=== PATIENT | female | born 1990 | race Asian ===

== ENCOUNTER 2016-06-26 16:48 | Outpatient (CLI) | payer MEDICAID, OTHER ==
[~2016-06-26] VITALS: Ht 170.2 cm; Wt 70.0 kg
[2016-06-26 17:17] VITALS: Ht 170.2 cm; Wt 70.0 kg
[2016-06-26 17:18] VITALS: BP 117/64; PULSE 83; RESP 20
[2016-06-26] MEDS ORDERED: PREN1TAB79 PO (17:21)
[2016-06-26 18:06] LABS: ADD UMIC NO; URINE BILIRUBIN (Dip) NEGATIVE (NEGATIVE); URINE BLOOD (Dip) NEGATIVE (NEGATIVE); URINE COLOR LT. YELLOW (YELLOW); URINE KETONES (Dip) TRACE (NEGATIVE); URINE LEUKOCYTE ESTERASE (Dip) NEGATIVE (NEGATIVE); URINE NITRITE (Dip) NEGATIVE (NEGATIVE); URINE TOTAL PROTEIN (Dip) NEGATIVE (NEGATIVE); URINE UROBILINOGEN (Dip) 0.2 E.U./dL (0.1-1.0)
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
== END 2016-06-26 19:30 | disposition home or self-care (01) ==
LOC: OBT 16:48 → L-D 16:49 → OBT 19:30
PROVIDERS: ATTEND Obstetrics & Gynecology
DX: O26.892 Other specified pregnancy related conditions, second trimester (principal); R52 Pain, unspecified; V89.2XXA Person injured in unspecified motor-vehicle accident, traffic, initial encounter; Y92.9 Unspecified place or not applicable; Z3A.22 22 weeks gestation of pregnancy
CPT/HCPCS: 36415; 76815; 76817; 81003; 82962; 86850; 86900; 86901; Z7500; G0463

== ENCOUNTER 2016-10-03 02:07 | Inpatient (IN) | payer OTHER ==
[~2016-10-03] VITALS: Ht 170.2 cm; Wt 83.4 kg
[~2016-10-03 02:07] MED LIST: PREN1TAB79 PO
[2016-10-03 02:48] VITALS: BP 131/86; PULSE 95; RESP 20; Ht 170.2 cm; Wt 83.4 kg
[2016-10-03] MEDS ORDERED: LACTATED RINGER'S 1,000 ML IV ONE (04:00)
[2016-10-03] MEDS ORDERED: FERR325C PO (04:43)
[2016-10-03] MEDS ORDERED: FOL8 PO (04:43)
[2016-10-03] MEDS ORDERED: MTF1000T PO (04:43)
[2016-10-03] MEDS ORDERED: METF500T4 PO (04:43)
[2016-10-03] MEDS: LACTATED RINGER'S 1,000 ML IV* SCH ×3 (05:22→20:59)
[2016-10-03 10:11] LABS: ADD UMIC YES; UR ASCORBIC ACID NEGATIVE (NEGATIVE); UR BILIRUBIN (Dip) NEGATIVE (NEGATIVE); UR BLOOD (Dip) 3+ mg/dL (NEGATIVE); UR CLARITY CLEAR (CLEAR); UR COLOR YELLOW (YELLOW); UR GLUCOSE (Dip) 3+ mg/dL (NEGATIVE); UR KETONES (Dip) 1+ mg/dL (NEGATIVE); UR LEUKOCYTE ESTERASE (Dip) NEGATIVE Leu/ul (NEGATIVE); UR NITRITE (Dip) NEGATIVE (NEGATIVE); UR RBC 3 /HPF (0-5); UR TOTAL PROTEIN (Dip) NEGATIVE (NEGATIVE); UR UROBILINOGEN (Dip) NEGATIVE (NEGATIVE)
[2016-10-03 10:20] LABS: ADD SCAN DIFF NO
[2016-10-03 10:26] LABS: BASOPHILS % 0.4 % (0.0-2.0); EOSINOPHILS % 0.5 % (0.0-7.0); HEMATOCRIT 37.5 % (37.0-47.0); HEMOGLOBIN 12.7 g/dl (12.0-16.0); LYMPHOCYTES % 23.9 % (15.0-51.0); MEAN CORPUSCULAR HEMOGLOBIN 29.6 pg (29.0-33.0); MEAN CORPUSCULAR HGB CONC 33.9 g/dl (32.0-37.0); MEAN CORPUSCULAR VOLUME 87.4 fl (82.0-101.0); MEAN PLATELET VOLUME 10.2 fl (7.4-10.4); MONOCYTE # 0.6 10^3/ul (0.3-0.9); MONOCYTES % 7.4 % (0.0-11.0); NEUTROPHIL # 5.7 10^3/ul (1.6-7.5); NEUTROPHILS % 67.3 % (39.0-77.0); PLATELET COUNT 217 10^3/UL (140-415); RED BLOOD COUNT 4.29 10^6/ul (4.20-5.40); RED CELL DISTRIBUTION WIDTH 13.3 % (11.5-14.5); WHITE BLOOD COUNT 8.5 10^3/ul (4.8-10.8)
[2016-10-03 10:48] LABS: ALBUMIN 3.9 g/dl (3.3-4.9); ALBUMIN/GLOBULIN RATIO 1.5; CALCIUM 8.8 mg/dl (8.4-10.2); CREATININE 0.49 mg/dl (0.44-1.00); POTASSIUM 3.5 mmol/L (3.5-5.1); TOTAL PROTEIN 6.5 g/dl (6.1-8.1); URIC ACID 4.3 mg/dl (3.1-7.9)
[2016-10-03] MEDS ORDERED: ACETAMINOPHEN 325 MG TAB PO STA (11:04)
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
[2016-10-03] MEDS: FOLIC ACID 0.4 MG TAB PO SCH (13:53)
[2016-10-03] MEDS: metFORMIN 500 MG TAB PO SCH ×2 (13:53→22:31)
--- NOTE | 2016-10-03 23:24 | HP ---
Date/Time of Note Date/Time of Note DATE: 10/03/16 TIME: 23:20 OB - History Hx of Present Chief Complaint: contractions Estimated Due Date: Oct 25, 2016 : 2 Para: 0 Spontaneous : 1 Therapeutic : 0 Care: Good Care Ultrasounds: Normal mid trimester US Obstetrical Complications: Gestational Diabetes Medical Complications: None Past Family/Social History * Past Medical, Surgical, Family and Obstetric Histories reviewed from chart. GBS Status: Positive OB Admission Exam Vital Signs Vital Signs Vital Signs Date Time Temp Pulse Resp B/P Pulse Ox O2 Delivery O2 Flow Rate FiO2 10/03/16 02:48 97.7 95 20 131/86 Room Air Physical Exam HEENT: WNL Heart: Rhythm Normal Lungs: Clear, Equal Abdomen: WNL Extremities: Normal Reflexes: Normal Cervical Dilatation: 3cm Effacement: 50% Station: -1 Membranes: Intact Heart Rate: 130's Accelerations: Accelerations Present Decelerations: No Decelerations Varibility: Moderate Last 72 hourBlood Glucose Bedside Glucose - 72 Hours Test 10/03/16 06:53 10/03/16 10:05 10/03/16 14:57 10/03/16 19:46 Bedside Glucose 195mg/dL (70-220) 173mg/dL (70-220) 157mg/dL (70-220) 128mg/dL (70-220) Last 72 hours Lab Results CBC & BMP 10/03/16 09:55 Liver Function Test 10/03/16 09:55 Alanine Aminotransferase (ALT/SGPT) 29 Albumin 3.9 Alkaline Phosphatase 103 Aspartate Amino Transf (AST/SGOT) 16 Direct Bilirubin 0.00 Total Protein 6.5 OB Assessment/Plan Reason for admission: other (R/O preeclampsia) Plan: Other (Admit, PIH panel, 24 hour urine collection) ROSHAN KERN MD Oct 03, 2016 23:24
[2016-10-04] MEDS: ACETAMINOPHEN 325 MG TAB PO PRN ×3 (04:24→15:55)
[2016-10-04] MEDS: LACTATED RINGER'S 1,000 ML IV* SCH ×3 (04:44→22:03)
[2016-10-04] MEDS: ACCU-CHEK XX SCH ×4 (07:30→20:46)
[2016-10-04] MEDS: FOLIC ACID 0.4 MG TAB PO SCH (08:29)
[2016-10-04] MEDS ORDERED: metFORMIN (XR) 500 MG TAB PO ONE (11:00)
[2016-10-04] MEDS: metFORMIN 500 MG TAB PO SCH ×2 (12:02→20:47)
[2016-10-04 13:39] LABS: SCRET 0.49 mg/dl (0.44-1.00)
[2016-10-04] MEDS ORDERED: MAGNESIUM SULFATE 4 GM/100 ML 100 ML IVPB ONE (20:30)
[2016-10-04] MEDS ORDERED: AMPICILLIN 2 GM/NS (PMX) 100 ML IVPB ONE (21:00)
[2016-10-04] MEDS: MAGNESIUM SULFATE 20 GM/500 ML 500 ML IV SCH (21:26)
[2016-10-04] MEDS ORDERED: LACTATED RINGER'S 1,000 ML IV SCH ×2 (22:38)
[2016-10-04] MEDS ORDERED: DEXTROSE 5%-LR 1,000 ML IV SCH (22:38)
[2016-10-04] MEDS ORDERED: IBUPROFEN 600 MG TAB PO PRN (23:00)
[2016-10-04] MEDS ORDERED: METHYLERGONOVINE 0.2 MG INJ IM PRN (23:00)
[2016-10-04] MEDS ORDERED: BUTORPHANOL 2 MG INJ IV PRN ×2 (23:00)
[2016-10-04] MEDS ORDERED: OXYTOCIN 30 UNITS/LR 500 ML IV SCH ×2 (23:00)
[2016-10-04] MEDS ORDERED: LACTATED RINGER'S 1,000 ML IV PRN (23:00)
[2016-10-04] MEDS ORDERED: LIDOCAINE 1% (MPF) 30 ML INJ INJ PRN (23:00)
[2016-10-04] MEDS ORDERED: CARBOPROST 250 MCG INJ IM PRN (23:00)
[2016-10-04] MEDS ORDERED: ACETAMINOPHEN/CODEINE #3 TAB PO PRN (23:00)
[2016-10-04] MEDS ORDERED: OXYTOCIN 30 UNITS/LR 500 ML IV PRN (23:00)
[2016-10-04] MEDS ORDERED: MISOPROSTOL 200 MCG TAB PR PRN (23:00)
[2016-10-04] MEDS: OXYTOCIN 30 UNITS/LR 500 ML IV SCH (23:45)
[2016-10-05] MEDS: AMPICILLIN 1 GM/NS (PMX) 50 ML IVPB SCH ×6 (00:57→21:01)
[2016-10-05] MEDS: ACETAMINOPHEN 325 MG TAB PO PRN ×5 (02:54→20:44)
[2016-10-05] MEDS: MAGNESIUM SULFATE 20 GM/500 ML 500 ML IV SCH ×2 (07:01→16:27)
[2016-10-05 09:38] LABS: ADD SCAN DIFF NO
[2016-10-05 09:47] LABS: BASOPHILS % 0.3 % (0.0-2.0); EOSINOPHILS % 0.3 % (0.0-7.0); HEMATOCRIT 41.1 % (37.0-47.0); HEMOGLOBIN 13.6 g/dl (12.0-16.0); LYMPHOCYTES # 1.6 10^3/ul (0.8-2.9); LYMPHOCYTES % 20.7 % (15.0-51.0); MEAN CORPUSCULAR HEMOGLOBIN 29.1 pg (29.0-33.0); MEAN CORPUSCULAR HGB CONC 33.1 g/dl (32.0-37.0); MEAN PLATELET VOLUME 10.2 fl (7.4-10.4); MONOCYTE # 0.5 10^3/ul (0.3-0.9); MONOCYTES % 7.2 % (0.0-11.0); NEUTROPHIL # 5.3 10^3/ul (1.6-7.5); PLATELET COUNT 234 10^3/UL (140-415); RED BLOOD COUNT 4.67 10^6/ul (4.20-5.40); RED CELL DISTRIBUTION WIDTH 13.4 % (11.5-14.5); WHITE BLOOD COUNT 7.5 10^3/ul (4.8-10.8)
[2016-10-05 10:01] LABS: INR 0.85; PROTIME 11.6 Sec (12.2-14.2); PT RATIO 0.9
[2016-10-05 10:02] LABS: PARTIAL THROMBOPLASTIN TIME 23.3 Sec (25.0-35.0)
[2016-10-05] MEDS: LACTATED RINGER'S 1,000 ML IV* SCH (13:00)
[2016-10-05] MEDS ORDERED: FENTAnyl 2MCG/ML-ROPIV 0.2% 100 ML ONE (15:24)
[2016-10-05] MEDS ORDERED: NALOXONE (0.4 MG/ML) INJ IV PRN (16:30)
[2016-10-05] MEDS ORDERED: ONDANSETRON 4 MG INJ IV PRN (16:30)
[2016-10-05] MEDS ORDERED: DIPHENHYDRAMINE 50 MG INJ IV PRN (16:30)
[2016-10-05] MEDS ORDERED: PROCHLORPERAZINE 10 MG INJ IV PRN (16:30)
[2016-10-05] MEDS ORDERED: KETOROLAC 30 MG INJ IV PRN (16:30)
[2016-10-05] MEDS ORDERED: morphine 2 MG INJ IV PRN ×2 (16:30)
[2016-10-05] MEDS: FENTAnyl 2MCG/ML-ROPIV 0.2% 100 ML BAG EPI SCH (22:26)
[2016-10-06] LABS: ADD SCAN DIFF NO
[2016-10-06 00:05] LABS: BASOPHILS % 0.2 % (0.0-2.0); EOSINOPHILS % 0.1 % (0.0-7.0); HEMATOCRIT 37.9 % (37.0-47.0); HEMOGLOBIN 12.8 g/dl (12.0-16.0); LYMPHOCYTES # 1.5 10^3/ul (0.8-2.9); LYMPHOCYTES % 17.7 % (15.0-51.0); MEAN CORPUSCULAR HEMOGLOBIN 29.6 pg (29.0-33.0); MEAN CORPUSCULAR HGB CONC 33.8 g/dl (32.0-37.0); MEAN CORPUSCULAR VOLUME 87.5 fl (82.0-101.0); MEAN PLATELET VOLUME 10.2 fl (7.4-10.4); MONOCYTE # 0.5 10^3/ul (0.3-0.9); MONOCYTES % 5.5 % (0.0-11.0); NEUTROPHIL # 6.2 10^3/ul (1.6-7.5); NEUTROPHILS % 75.9 % (39.0-77.0); PLATELET COUNT 225 10^3/UL (140-415); RED BLOOD COUNT 4.33 10^6/ul (4.20-5.40); RED CELL DISTRIBUTION WIDTH 13.2 % (11.5-14.5); WHITE BLOOD COUNT 8.2 10^3/ul (4.8-10.8)
[2016-10-06 00:23] LABS: ALBUMIN 3.9 g/dl (3.3-4.9); ALBUMIN/GLOBULIN RATIO 1.44; BILIRUBIN,INDIRECT 0.3 mg/dl (0-1.1); BILIRUBIN,TOTAL 0.3 mg/dl (0.2-1.3); CALCIUM 7.5 mg/dl (8.4-10.2); CREATININE 0.47 mg/dl (0.44-1.00); POTASSIUM 4.1 mmol/L (3.5-5.1); TOTAL PROTEIN 6.6 g/dl (6.1-8.1)
[2016-10-06] MEDS: ACETAMINOPHEN 325 MG TAB PO PRN ×6 (00:50→20:43)
[2016-10-06] MEDS: AMPICILLIN 1 GM/NS (PMX) 50 ML IVPB SCH ×6 (00:50→20:43)
[2016-10-06] MEDS: LACTATED RINGER'S 1,000 ML IV* SCH ×2 (00:51→23:06)
[2016-10-06] MEDS: MAGNESIUM SULFATE 20 GM/500 ML 500 ML IV SCH ×3 (02:41→23:01)
[2016-10-06] MEDS: FENTAnyl 2MCG/ML-ROPIV 0.2% 100 ML BAG EPI SCH ×4 (05:41→21:18)
[2016-10-06] MEDS: OXYTOCIN 30 UNITS/LR 500 ML IV SCH (06:28)
[2016-10-06] MEDS: DEXTROSE 5%-LR 1,000 ML IV PRN (20:53)
[2016-10-07] VITALS (13 sets, daily range): BP systolic 118–146; BP diastolic 56–88; PULSE 79–96; RESP 18–85
[2016-10-07] MEDS: AMPICILLIN 1 GM/NS (PMX) 50 ML IVPB SCH (00:42)
[2016-10-07] MEDS: ACETAMINOPHEN 325 MG TAB PO PRN (00:42)
[2016-10-07] MEDS: FENTAnyl 2MCG/ML-ROPIV 0.2% 100 ML BAG EPI SCH (01:50)
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
[2016-10-07] MEDS: DEXTROSE 5%-LR 1,000 ML IV PRN (02:55)
[2016-10-07] MEDS ORDERED: CITRIC ACID/NA CITRATE 30 ML CUP PO ONE (04:20)
[2016-10-07] MEDS ORDERED: CITRIC ACID/NA CITRATE 30 ML CUP ONE (04:28)
[2016-10-07] MEDS ORDERED: CEFAZOLIN 2 GM/50 ML (PMX) 50 ML IVPB ONE (04:30)
[2016-10-07] MEDS ORDERED: LIDOCAINE 2% (SDV) 5 ML INJ ONE (04:46)
[2016-10-07] MEDS ORDERED: METOCLOPRAMIDE 10 MG INJ ONE (04:47)
[2016-10-07] MEDS ORDERED: DEXAMETHASONE 4 MG/ML 1 ML INJ ONE (04:47)
[2016-10-07] MEDS ORDERED: KETOROLAC 30 MG INJ ONE (04:47)
[2016-10-07] MEDS ORDERED: ONDANSETRON 4 MG INJ ONE (04:47)
[2016-10-07] MEDS ORDERED: OXYTOCIN 10 UNIT INJ ONE (04:47)
[2016-10-07] MEDS ORDERED: morphine SULFATE/PF (10 MG/10 ML) INJ ONE (04:48)
[2016-10-07] MEDS ORDERED: FENTAnyl 50 MCG/ML VIAL ONE (05:16)
[2016-10-07] MEDS ORDERED: MEPERIDINE 100 MG INJ ONE (05:19)
[2016-10-07] MEDS ORDERED: LABETALOL HCL 20MG INJ ONE (05:26)
[2016-10-07] MEDS ORDERED: DIPHENHYDRAMINE 50 MG INJ IV PRN (06:00)
[2016-10-07] MEDS ORDERED: HYDROCODONE/APAP (5/325) TAB PO PRN (06:00)
[2016-10-07] MEDS ORDERED: morphine 2 MG INJ IV PRN (06:00)
[2016-10-07] MEDS ORDERED: ACETAMINOPHEN 500 MG TAB PO PRN (06:00)
[2016-10-07] MEDS ORDERED: NALBUPHINE HCL (10 MG/1 ML) INJ IV PRN (06:00)
[2016-10-07] MEDS ORDERED: ONDANSETRON 4 MG INJ IV PRN (06:00)
[2016-10-07] MEDS ORDERED: NALOXONE (0.4 MG/ML) INJ IV PRN (06:00)
[2016-10-07] MEDS ORDERED: HYDROmorphONE 1 MG/ML SYG IV PRN ×2 (06:00)
[2016-10-07] MEDS ORDERED: KETOROLAC 30 MG INJ IV PRN (06:00)
[2016-10-07] MEDS: LACTATED RINGER'S 1,000 ML IV SCH ×2 (08:54→20:41)
[2016-10-07] MEDS: MAGNESIUM SULFATE 20 GM/500 ML 500 ML IV SCH ×2 (08:59→18:31)
[2016-10-07] MEDS ORDERED: METHYLERGONOVINE 0.2 MG INJ IM PRN (09:00)
[2016-10-07] MEDS ORDERED: OXYTOCIN 30 UNITS/LR 500 ML IV PRN (09:00)
[2016-10-07] MEDS ORDERED: OXYCODONE/ACETAMINOPHEN (5/325) TAB PO PRN (09:00)
[2016-10-07] MEDS ORDERED: LANOLIN 7 GM TUBE TOP PRN (09:00)
[2016-10-07] MEDS ORDERED: MISOPROSTOL 200 MCG TAB PR PRN (09:00)
[2016-10-07] MEDS ORDERED: CARBOPROST 250 MCG INJ IM PRN (09:00)
[2016-10-07] MEDS: SENNA/DOCUSATE NA (8.6MG/50MG) TAB PO SCH ×2 (09:00→22:03)
[2016-10-07] MEDS: ACCU-CHEK XX SCH ×3 (10:05→20:05)
[2016-10-07] MEDS: OXYTOCIN 30 UNITS/LR 500 ML IV SCH ×2 (12:54→13:16)
--- NOTE | 2016-10-07 13:08 | OPR ---
DATE OF OPERATION: 10/07/2016 PREOPERATIVE DIAGNOSES: at 37 weeks and 2 days with class A2 gestational diabetes, preeclampsia with severe features and arrest of dilation. POSTOPERATIVE DIAGNOSES: at 37 weeks and 2 days with class A2 gestational diabetes, preeclampsia with severe features and arrest of dilation. OPERATIVE PROCEDURE: Primary low transverse section. SURGEON: Dr. Thomson. ENGINEERING AND SCIENTIFIC PROGRAMMER: Dr. Linares ANESTHESIA: Epidural. ANESTHESIOLOGIST: PROCEDURE: The patient was taken to the operating room and placed on the operating table in the supine position. After adequate epidural anesthesia was given, the area was prepared and draped in the usual sterile fashion. Epidural anesthesia was somewhat satisfactory. Using a scalpel, a Pfannenstiel incision was made about 2 fingerbreadths above the symphysis pubis. The incision was carried down to the fascia. The fascia was incised and extended bilaterally with the Harvey scissors. Two Kochers were used to separate the fascia from the muscle. The muscle was dissected in the midline peritoneum. The peritoneum was bluntly entered. Using a scalpel, a small transverse incision was made on the lower segment of the uterus. Upon entering the uterine cavity, bandage scissors were used to extend the incision bilaterally carefully. The baby was delivered from cephalic presentation. After suctioning of clear amnionic fluid, the infant was handed off to the control systems drafting officer in attendance. Apgars were 8 and 9. The placenta was delivered without difficulty. The uterus was closed with number 1 Monocryl in a continuous locked fashion with hemostasis. Both ovaries and tubes, uterus all looked normal. The peritoneal cavity was irrigated with warm saline. The peritoneum was closed with 2-0 Vicryl continuous. The fascia was closed with number 0 Vicryl continuous in 2 segments. The subcutaneous tissue was reapproximated with 2-0 plain. The skin was closed with jovanna. ESTIMATED BLOOD LOSS: 600 mL. COMPLICATIONS: None. COUNTS: All counts were correct. Dictated By: Esvin Thomson MD /mayo/doyle /Document#: [id number] IQRA
[2016-10-07] MEDS: LACTATED RINGER'S 1,000 ML IV* SCH (13:50)
--- NOTE | 2016-10-07 22:26 | NSTRPT ---
NST Information Datetime Report Generated by CPN: 10/07/2016 22:25 Datetime: 10/01/2016 10:16 NST Information EGA: 36.4 Test Number: 5 Time on Monitor: 10/01/2016 10:31 Time off Monitor: 10/01/2016 11:01 NST Duration (Min): 30 Reason for NST: Diabetes Mellitus; Other Reason for NST Other: A2DM Test and Monitor Explained: Monitor Explained; Test Explained Pulse: 83 Resp: 16 SBP: 130 DBP: 60 Test Evaluation NST Interventions: Reposition Patient NST Interventions Other: .0. 0 Patient States Movement: Present Contraction Frequency: x3 FHR Baseline : 135 Variability: Moderate 6-25bpm Accelerations: 15X15 Decelerations: None FHR Category: Category I NST Results: Reactive Comments: PT TO U/S, cephalic, miguelina 16.9, fbs 95. 1104-Pt Home undelivered with PTL precautions. Fo llow up NST appointment given. Kick Count instructions reviewed. Pt states understanding. No f urhter quetions asked at this time. Electronically Signed By E-Signature: with User ID: [id number] Datetime: 09/29/2016 09:20 NST Information EGA: 36.2 NST Duration (Min): 32 Datetime: 09/24/2016 09:10 NST Information EGA: 35.4 NST Duration (Min): 32 Datetime: 09/21/2016 09:15 NST Information EGA: 35.1 NST Duration (Min): 25 Datetime: 09/15/2016 13:23 NST Information EGA: 34.2 NST Duration (Min): 31
[2016-10-07] MEDS: morphine 4 MG/ML VIAL IV PRN (22:33)
[2016-10-08] VITALS (10 sets, daily range): BP systolic 115–137; BP diastolic 61–74; PULSE 77–93; RESP 18–19
[2016-10-08] MEDS: LACTATED RINGER'S 1,000 ML IV SCH (00:54)
[2016-10-08] MEDS: LACTATED RINGER'S 1,000 ML IV* SCH (03:10)
[2016-10-08] MEDS: morphine 4 MG/ML VIAL IV PRN (03:31)
--- NOTE | 2016-10-08 07:04 | PREOPHP ---
DATE OF ADMISSION: 10/03/2016 HISTORY: A 26-year-old female 2 para 0-0-1-0, estimated date of delivery October 25, 2016, was admitted due to elevated blood pressure. PAST MEDICAL HISTORY: History of depression and anxiety. ALLERGIES: NO KNOWN DRUG ALLERGIES. FAMILY HISTORY: Hypertension and diabetes. COURSE: Significant for class A2 gestational diabetes. PHYSICAL EXAMINATION: VITAL SIGNS: Patient was afebrile. Vital signs stable. HEENT: Examination head and neck within normal limits. ABDOMEN: Soft, nontender, and gravid. EXTREMITIES: Within normal limits. NEUROLOGIC: Within normal limits. HOSPITAL COURSE: The patient was admitted for evaluation of preeclampsia. The patient had workup with -induced hypertension panel and 24-hour urine collection. Also the 24- hour urine collection revealed total protein to be elevated. Patient also complained of headache. On October 04, 2016, The patient was started on intravenous magnesium sulfate for seizure prophylaxis and transferred to labor and delivery. The patient was given augmentation of labor with oxytocin. The patient has had patient slow progress in labor. Patient progressed to 9 cm dilation but there has been no further progress. The patient was counseled about option of delivery by primary due to arrest of dilation. Risks, benefits, and alternatives of procedure were explained to the patient. The patient stated she understood and gave informed consent for the procedure. This was explained to the patient. Dictated By: Esvin Thomson MD /mayo/prince /Document#: [id number] IQRA
[2016-10-08] MEDS: ACCU-CHEK XX SCH ×3 (07:30→13:50)
[2016-10-08 08:11] LABS: ADD SCAN DIFF NO
[2016-10-08 08:21] LABS: BASOPHILS % 0.2 % (0.0-2.0); EOSINOPHILS % 0.3 % (0.0-7.0); HEMOGLOBIN 12.8 g/dl (12.0-16.0); LYMPHOCYTES # 2.5 10^3/ul (0.8-2.9); LYMPHOCYTES % 21.5 % (15.0-51.0); MEAN CORPUSCULAR HEMOGLOBIN 29.3 pg (29.0-33.0); MEAN CORPUSCULAR HGB CONC 33.7 g/dl (32.0-37.0); MEAN PLATELET VOLUME 9.9 fl (7.4-10.4); MONOCYTE # 0.7 10^3/ul (0.3-0.9); MONOCYTES % 6.2 % (0.0-11.0); NEUTROPHIL # 8.2 10^3/ul (1.6-7.5); NEUTROPHILS % 71.5 % (39.0-77.0); PLATELET COUNT 243 10^3/UL (140-415); RED BLOOD COUNT 4.37 10^6/ul (4.20-5.40); RED CELL DISTRIBUTION WIDTH 13.1 % (11.5-14.5); WHITE BLOOD COUNT 11.4 10^3/ul (4.8-10.8)
[2016-10-08] MEDS: OXYCODONE/ACETAMINOPHEN (5/325) TAB PO PRN ×3 (11:45→20:22)
[2016-10-08] MEDS: SENNA/DOCUSATE NA (8.6MG/50MG) TAB PO SCH ×2 (20:00→20:22)
--- NOTE | 2016-10-08 20:11 | QN ---
Documentation Comment No complaint Afebrile VSS Abdomen soft ND POD #1 Stable Continue present care ROSHAN KERN MD Oct 08, 2016 20:11
[2016-10-09] MEDS: OXYCODONE/ACETAMINOPHEN (5/325) TAB PO PRN ×5 (00:12→21:53)
[2016-10-09 04:12] VITALS: BP 125/80; PULSE 84; RESP 18
[2016-10-09 08:16] VITALS: BP 111/64; PULSE 75; RESP 18
--- NOTE | 2016-10-09 09:36 | QN ---
Documentation Comment No complaint Afebrile VSS Abdomen soft Stable Continue present care. ROSHAN KERN MD Oct 09, 2016 09:36
[2016-10-09] MEDS: SENNA/DOCUSATE NA (8.6MG/50MG) TAB PO SCH ×2 (09:48→21:01)
[2016-10-09 16:01] VITALS: BP 140/85; PULSE 86; RESP 18
[2016-10-09 20:00] VITALS: BP 133/80; PULSE 86; RESP 18
[2016-10-10] MEDS: OXYCODONE/ACETAMINOPHEN (5/325) TAB PO PRN ×4 (02:30→19:38)
[2016-10-10 04:00] VITALS: BP 135/76; PULSE 90; RESP 20
[2016-10-10 08:15] VITALS: BP 117/69; PULSE 73; RESP 18
[2016-10-10] MEDS: ACCU-CHEK XX SCH ×4 (08:38→14:39)
[2016-10-10] MEDS: SENNA/DOCUSATE NA (8.6MG/50MG) TAB PO SCH ×2 (08:40→20:56)
[2016-10-10] MEDS ORDERED: DIPHTH/TET/ACEL PERTUSS (ADULT) 0.5 ML VIAL IM* ONE (09:00)
[2016-10-10 15:45] VITALS: BP_SYST 119; BP_SYST 139; BP_DIAS 75; BP_DIAS 84; PULSE 76; PULSE 80; RESP 18; RESP 20
[2016-10-10 20:00] VITALS: BP 141/80; PULSE 91; RESP 18
[2016-10-11] MEDS: OXYCODONE/ACETAMINOPHEN (5/325) TAB PO PRN (01:51)
--- NOTE | 2016-10-15 12:13 | DS ---
DATE OF ADMISSION: 10/03/2016 DATE OF DISCHARGE: 10/11/2016 ADMITTING DIAGNOSES: 1. at 36+ weeks. 2. The class A2 gestational diabetes. 3. Rule out preeclampsia. HISTORY OF PRESENT ILLNESS: The patient is a 26-year-old female, II, para 0, 0, I,0 at the time of admission, and para I, 0, I, I at the time of discharge. At 36+ weeks gestation she was admitted due to elevated blood pressure. The patient had workup for preeclampsia with -induced hypertension panel and 24 hour urine collection. The results of the 24 hour urine collection revealed a total protein to be elevated. On 10/04/2016, the patient complained of headache. The patient was started on intravenous magnesium sulfate for seizure prophylaxis and transferred to labor and delivery for induction of labor. The patient induction of labor on 10/07/2016, and after obtaining informed consent the patient underwent a primary low-transverse and section due to arrest of dilation. The patient's operation was uncomplicated and postoperatively the patient was continued on intravenous magnesium sulfate for another 24 hours. The patient was given clear liquid diet which was advanced to a regular diet which she tolerated well. During the course the patient had class A2 gestational diabetes. During the the patient's blood glucose was well-controlled with diet and there was no need for any medication. The patient is discharged on postop day #3, after having adequate bladder and bowel function. DISCHARGE CONDITION: Stable. DISCHARGE INSTRUCTIONS: Diet regular. Activities pelvic rest and no strenuous activities. DISCHARGE MEDICATIONS: Motrin as needed for pain. Continue with ferrous sulfate. FOLLOWUP: Follow up in clinic in 4 days. FINAL DIAGNOSES: 1. Term , delivered by section. 2. Class A2 gestational diabetes. 3. Preeclampsia with severe features. 4. Arrest of dilation. 5. Mother with single live born. Dictated By: Esvin Thomson MD /mayo/sherie /Document#: [id number]
== END 2016-10-11 03:05 | disposition home or self-care (01) | DRG 766 ==
LOC: OBT 02:07 → L-D 02:08 → OBG 11:00 → OBT 11:00 → L-D 10-04 22:15 → PP1 10-07 08:52
PROVIDERS: ADMIT Obstetrics & Gynecology; ATTEND Obstetrics & Gynecology
PROC: 3E033VJ Introduction of Other Hormone into Peripheral Vein, Percutaneous Approach (ICD-10-PCS; 2016-10-07)
PROC: 10D00Z1 Extraction of Products of Conception, Low, Open Approach (ICD-10-PCS; principal; 2016-10-07 04:30)
DX: O14.13 Severe pre-eclampsia, third trimester (principal); O24.429 Gestational diabetes mellitus in childbirth, unspecified control; O62.0 Primary inadequate contractions; Z3A.37 37 weeks gestation of pregnancy; Z37.0 Single live birth
CPT/HCPCS: 36415; 62319; 76815; 80053; 81001; 82575; 82947; 82962; 83735; 84156; 84560; 85025; 85384; 85610; 85730; 86592; 86900; 86901; 87340; 90715; 94760; 96360; 96361; 99464; G0463; J0290; J0690; J1100; J1885; J2175; J2270; J2274; J2405; J2590; J2765; J3010; J3475; J7120; J7121

== ENCOUNTER 2017-01-03 10:48 | Emergency (ER) | payer SELFPAY ==
[~2017-01-03] VITALS: Ht 170.2 cm; Wt 64.0 kg
[~2017-01-03 10:48] MED LIST changes: +FERR325C PO; +FOL8 PO
[2017-01-03 11:02] VITALS: Ht 170.2 cm; Wt 64.0 kg
== END 2017-01-03 14:00 | disposition left against medical advice (07) ==
LOC: FTE 10:48
DX: Z53.21 Procedure and treatment not carried out due to patient leaving prior to being seen by health care provider (principal)